=== PATIENT | female | born 1995 | race Caucasian/White ===

== ENCOUNTER 2020-12-28 20:11 | Inpatient (IN) | payer MEDICAID ==
[2020-12-28] MEDS ORDERED: Misoprostol 200 MCG Tab PO PRN (20:30)
[2020-12-28] MEDS ORDERED: Methylergonovine 0.2 MG/1 ML Amp IM PRN (20:30)
[2020-12-28] MEDS ORDERED: Nalbuphine 10 MG/1 ML Vial IVPUSH PRN (20:30)
[2020-12-28] MEDS ORDERED: Lidocaine 1% 50 ML MDV INJECT PRN (20:30)
[2020-12-28] MEDS ORDERED: Sodium Chloride 0.9% 10 ML Syringe FLUSH PRN (20:30)
[2020-12-28] MEDS ORDERED: Oxytocin/0.9 % Sodium Chloride 30 UNIT/500 ML BAG IV SCH ×2 (20:30→20:45)
[2020-12-28] MEDS ORDERED: Butorphanol 1 MG/ML SDV IVPUSH PRN (20:30)
[2020-12-28] MEDS ORDERED: Carboprost Tromethamine 250 MCG/1 ML Amp IM PRN (20:30)
[2020-12-28] MEDS ORDERED: Tranexamic Acid 1,000 MG in Sodium Chloride 0.9% 100 ML IV PRN (20:30)
[2020-12-28] MEDS ORDERED: Water For Irrigation,Sterile 1,000 ML Container IRR PRN (20:30)
[2020-12-28] MEDS ORDERED: Sodium Chloride 0.9% 10 ML SDV IV PRN (20:30)
[2020-12-28] MEDS ORDERED: Sodium Chloride 0.9% 2.5 ML Syringe FLUSH PRN (20:30)
[2020-12-28] MEDS ORDERED: Terbutaline 1 MG/ML SDV SUBCUT PRN (20:32)
[2020-12-28] MEDS: Misoprostol 25 MCG (1/4 of 100 MCG) Tab VAG PRN (21:29)
[2020-12-29] MEDS: Misoprostol 25 MCG (1/4 of 100 MCG) Tab VAG PRN ×3 (01:41→10:17)
[2020-12-29] MEDS: Lactated Ringers 1,000 ML IV SCH ×3 (06:19→21:14)
[2020-12-29] MEDS: Ondansetron 4 MG/2 ML SDV IVPUSH PRN (08:49)
[2020-12-29] MEDS ORDERED: Ropivacaine 0.2% PF 2 MG/ML 20 ML SDV ONE (14:18)
[2020-12-29] MEDS ORDERED: Ropivacaine HCl/PF 100 ML ONE (14:18)
[2020-12-29] MEDS ORDERED: fentaNYL 100 MCG/2 ML SDV ONE (14:19)
--- NOTE | 2020-12-29 15:15 | PCM.PREANE ---
Preanesthetic Assessment - Anesthesia/Transfusion/Family Hx Anesthesia History: Prior Anesthesia Without Reaction Family History of Anesthesia Reaction: No Transfusion History: No Prior Transfusion(s) - Review of Systems General: No Symptoms Pulmonary: No Symptoms Cardiovascular: No Symptoms Gastrointestinal: No Symptoms Neurological: No Symptoms Other: Reports: None (Denies any personal or family hx of bleeding or clotting problems) - Physical Assessment Height: 1.6 m Weight: 104.326 kg ASA Class: 2 Mental Status: Alert & Oriented x3 Airway Class: Mallampati = 3 Dentition: Reports: Normal Dentition - Lab Values: Laboratory Last Values WBC 9.25 K/uL (4.0-11.0) 12/28/20 21:04 RBC 4.79 M/uL (4.30-5.90) 12/28/20 21:04 Hgb 14.3 g/dL (12.0-16.0) 12/28/20 21:04 Hct 42.5 % (36.0-46.0) 12/28/20 21: MCV 88.7 fL (80.0-98.0) 12/28/20 21: MCH 29.9 pg (27.0-32.0) 12/28/20 21: MCHC 33.6 g/dL (31.0-37.0) 12/28/20 21:04 RDW Std Deviation 43.8 fl (28.0-62.0) 12/28/20 21:04 RDW Coeff of Tara 13 % (11.0-15.0) 12/28/20 21:04 Plt Count 211 K/uL (150-400) 12/28/20 21:04 MPV 11.70 fL (7.40-12.00) 12/28/20 21:04 Nucleated RBC % 0.0 /100WBC 12/28/20 21:04 Nucleated RBCs # 0 K/uL 12/28/20 21:04 POC Glucose 71 mg/dL (60-110) 12/29/20 08:38 Blood Type A POSITIVE 12/28/20 21:04 Antibody Screen NEGATIVE 12/28/20 21:04 - Allergies Allergies/Adverse Reactions: Allergies Allergy/AdvReac Type Severity Reaction Status Date / Time No Known Allergies Allergy Verified 12/28/20 20:21 - Acknowledgements Anesthesia Type Planned: Epidural Pt an Appropriate Candidate for the Planned Anesthesia: Yes Alternatives and Risks of Anesthesia Discussed w Pt/Guardian: Yes Pt/Guardian Understands and Agrees with Anesthesia Plan: Yes PreAnesthesia Questionnaire HEENT History: Reports: Impaired Vision, Other (See Below) (Many sinus surgeries) Other HEENT History: dual choanal atresia Respiratory History: Reports: Asthma 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: Endocrine/Metabolic History: Reports: Diabetes, Gestational - Past Surgical History HEENT Surgical History: Reports: Naso-Sinus Surgery Respiratory Surgical History: Reports: None Endocrine Surgical History: Reports: None - SUBSTANCE USE Tobacco Use Status *Q: Never Tobacco User Recreational Drug Use History: No - HOME MEDS Home Medications: Home Meds Albuterol Sulfate [Proair Hfa] 2 puff INH Q4HR PRN 12/28/20 [History] Insulin Detemir [Levemir] 20 units SQ BEDTIME 12/28/20 [History] Insulin Lispro [Humalog] 10 - 20 units SQ TIDMEALS 12/28/20 [History] Pnv No.103/Folic/Om3s/Fish Oil [ Gummies] 2 tab PO DAILY 12/28/20 [History] - CURRENT (IN HOUSE) MEDS Current Meds: Current Medications Butorphanol Tartrate (Stadol) 1 mg IVPUSH Q1H PRN PRN Reason: Pain Last Admin: 12/29/20 06:21 Dose: 1 mg Documented by: Carboprost Tromethamine (Hemabate Ds) 250 mcg IM ASDIRECTED PRN PRN Reason: Post Hemorrhage Oxytocin/Sodium Chloride (Oxytocin 30 Unit/500 Ml-Ns) 30 unit in 500 mls @ 999 mls/hr IV TITRATE DESTIN Tranexamic Acid 1,000 mg/ (Sodium Chloride) 110 mls @ 660 mls/hr IV ONETIME PRN PRN Reason: Bleeding Lactated Ringer's (Ringers, Lactated) 1,000 mls @ 150 mls/hr IV ASDIRECTED DESTIN Last Admin: 12/29/20 06:19 Dose: 150 mls/hr Documented by: Oxytocin/Sodium Chloride (Oxytocin 30 Unit/500 Ml-Ns) 30 unit in 500 mls @ 2 mls/hr IV TITRATE DESTIN; Protocol Lidocaine HCl (Xylocaine 1%) 50 ml INJECT ONETIME PRN PRN Reason: Laceration repair Methylergonovine Maleate (Methergine) 0.2 mg IM ASDIRECTED PRN PRN Reason: Post Hemorrhage Misoprostol (Cytotec) 200 mcg PO ONETIME PRN PRN Reason: Post Hemorrhage Misoprostol (Cytotec) 25 mcg VAG Q4H PRN PRN Reason: Cervical Ripening Last Admin: 12/29/20 10:17 Dose: 25 mcg Documented by: Nalbuphine HCl (Nubain) 10 mg IVPUSH Q1H PRN PRN Reason: Pain (severe 7-10) Ondansetron HCl (Zofran) 4 mg IVPUSH Q6H PRN PRN Reason: Nausea/Vomiting Last Admin: 12/29/20 08:49 Dose: 4 mg Documented by: Sodium Chloride (Saline Flush) 10 ml FLUSH ASDIRECTED PRN PRN Reason: Keep Vein Open Sodium Chloride (Saline Flush) 2.5 ml FLUSH ASDIRECTED PRN PRN Reason: Keep Vein Open Sodium Chloride (Normal Saline) 10 ml IV ASDIRECTED PRN PRN Reason: IV Use Sterile Water (Sterile Water For Irrigation) 1,000 ml IRR ASDIRECTED PRN PRN Reason: delivery Terbutaline Sulfate (Brethine) 0.25 mg SUBCUT ASDIRECTED PRN PRN Reason: Tacysystole Discontinued Medications Fentanyl (Sublimaze) Confirm Administered Dose 200 mcg .ROUTE .STK-MED ONE Stop: 12/29/20 14:20 Ropivacaine (Naropin 0.2%) Confirm Administered Dose 100 mls @ as directed .ROUTE .STK-MED ONE Stop: 12/29/20 14:19 Ropivacaine (Naropin 0.2%) Confirm Administered Dose 20 ml .ROUTE .STK-MED ONE Stop: 12/29/20 14:19
[2020-12-29 17:13] LABS: BLOOD UREA NITROGEN,BUN 9 mg/dL (7.0-18.0); CARBON DIOXIDE,CO2 23.5 mmol/L (21.0-32.0); CHLORIDE,CL 105 mmol/L (98-107); GLUCOSE RANDOM 104 mg/dL (74-106); POTASSIUM,K 4.2 mmol/L (3.5-5.1); SODIUM,NA 139 mmol/L (136-145)
[2020-12-30] MEDS ORDERED: Ropivacaine HCl/PF 100 ML ONE (01:31)
[2020-12-30] MEDS ORDERED: fentaNYL 100 MCG/2 ML SDV ONE ×2 (01:31→07:56)
[2020-12-30] MEDS ORDERED: Dextrose 5%-0.9% NaCl 1,000 ML IV SCH (01:45)
[2020-12-30] MEDS: Lactated Ringers 1,000 ML IV SCH (01:53)
[2020-12-30] MEDS: Ondansetron 4 MG/2 ML SDV IVPUSH PRN (05:33)
[2020-12-30] MEDS ORDERED: Lidocaine 2% with EPINEPHrine 1:200,000 20 ML SDV ONE (06:39)
[2020-12-30] MEDS ORDERED: Morphine PF 10 MG/10 ML SDV ONE (06:41)
[2020-12-30] MEDS ORDERED: Ondansetron 4 MG/2 ML SDV ONE (06:42)
[2020-12-30] MEDS ORDERED: Oxytocin 10 Units/1 ML SDV ONE (06:43)
[2020-12-30] MEDS ORDERED: Water For Injection, Sterile 20 ML ONE (06:51)
[2020-12-30] MEDS ORDERED: ceFAZolin 1 GM Vial ONE (06:51)
[2020-12-30] MEDS ORDERED: Phenylephrine 1% 10 MG/ML SDV ONE (07:10)
[2020-12-30] MEDS ORDERED: Midazolam 1 MG/ML 2 ML SDV ONE (07:56)
[2020-12-30] MEDS ORDERED: Naloxone 0.4 MG/ML Syringe IVPUSH PRN (08:41)
[2020-12-30] MEDS ORDERED: Acetaminophen/oxyCODONE 325-5 MG Tab PO PRN ×2 (08:41→08:45)
[2020-12-30] MEDS ORDERED: Nalbuphine 10 MG/1 ML Vial IVPUSH PRN (08:41)
[2020-12-30] MEDS ORDERED: diphenhydrAMINE 50 MG/ML SDV IVPUSH PRN ×2 (08:41→08:45)
[2020-12-30] MEDS ORDERED: fentaNYL 100 MCG/2 ML SDV IVPUSH PRN (08:41)
[2020-12-30] MEDS ORDERED: Ondansetron 4 MG/2 ML SDV IVPUSH PRN ×2 (08:41→08:45)
[2020-12-30] MEDS ORDERED: Methylergonovine 0.2 MG/1 ML Amp IM PRN (08:45)
[2020-12-30] MEDS ORDERED: Misoprostol 200 MCG Tab RECTAL PRN (08:45)
[2020-12-30] MEDS ORDERED: Tranexamic Acid 1,000 MG in Sodium Chloride 0.9% 100 ML IV PRN (08:45)
[2020-12-30] MEDS ORDERED: Lactated Ringers 1,000 ML IV SCH (08:45)
[2020-12-30] MEDS ORDERED: Lanolin 100% Cream 7 GM Tube TOP PRN (08:45)
[2020-12-30] MEDS ORDERED: Bisacodyl 10 MG Supp RECTAL PRN (08:45)
[2020-12-30] MEDS ORDERED: Oxytocin 10 Units/1 ML SDV IM PRN (08:45)
--- NOTE | 2020-12-30 08:57 | PCM.OPNOTE ---
- General Post-Op/Procedure Note Date of Surgery/Procedure: 12/30/20 Operative Procedure(s): Primary low transverse section Findings: Viable girl , 8/9, weight of 5lb3oz. Direct OP presentation Pre Op Diagnosis: 1. Cronin intrauterine at 38w6d. 2. intolerance of labor. 3. Insulin controlled gestational diabetes. 4. Intrauterine growth restriction. 5. Preeclampsia without severe features Post-Op Diagnosis: 1. Cronin intrauterine at 38w6d. 2. intolerance of labor. 3. Insulin controlled gestational diabetes. 4. Intrauterine growth restriction. 5. Preeclampsia without severe features Anesthesia Technique: Epidural Primary Surgeon: Taj Harp Anesthesia Provider: Jude Arauz Patient Information Coordinator: Minnie Fry Pathology: Placenta Output, Urine Amount: 200 EBL in mLs: 700 Condition: Good Free Text/Narrative:: Intake & Output 12/29/20 12/30/20 12/30/20 22:59 06:59 14:59 Intake Total 1000 1000 451 Output Total 1200 200 Balance 1000 -200 251
[2020-12-30] MEDS: Ketorolac 30 MG/ML SDV IVPUSH SCH ×3 (09:20→21:32)
[2020-12-30] MEDS: Docusate Sodium 100 MG Cap PO SCH ×2 (09:58→21:32)
--- NOTE | 2020-12-30 12:12 | OR ---
SURGEON: Taj Harp MD DATE OF PROCEDURE: 12/30/2020 INDICATION FOR PROCEDURE: A 25-year-old G1, P0 at 38 weeks and 6 days, admitted for induction of labor due to insulin-controlled gestational diabetes and intrauterine growth restriction. The patient's was complicated by GDMA2, which has been controlled with long and short-acting insulin. She has been receiving weekly BPPs, which has been assuring. The past week she had a growth ultrasound which showed intrauterine growth restriction. The baby was measuring 9th percentile by weight, but had reassuring umbilical artery Dopplers. She is GBS negative. 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 She received 4 doses of Cytotec for induction of labor, but she did not make make cervical change and remained 1cm. She was noted to have a mildly elevated blood pressures 140 to 150s/90s. Preeclampsia labs were done, which was normal except for a protein creatinine ratio of 0.7. She denies any symptoms of preeclampsia. She received an epidural for pain control, then pitocin was started and a Cook balloon was placed. However, she began to have recurrent deep variable declarations to the 80s and also had 2 prolonged decelerations lasting 3 to 4 minutes. Pitocin was stopped at that time, and the Cook balloon was removed. She had progressed to 2 cm dilated. After the heart rate returned to baseline, the Pitocin was again started and she again had decelerations, this time was late declarations recurring with every contraction, therefore Pitocin was again turned off, she was given time to rest and heart rate recovered to the baseline. Pitocin was then started again and this time the baby did tolerate the Pitocin with most category 1 tracing, but she continues to have periods of category 2 tracing with minimal variability and late declarations. She also had spontaneous rupture of membranes with clear fluid. After continuing the induction for more than 24 hours, she did not make progress beyond 3 cm dilated and the baby was not able to tolerate higher doses of Pitocin. Discussed with the patient that due to intolerance of labor and being remote from delivery, it would be safer for the baby to proceed with primary section. She was agreeable. Questions answered and consent was signed. PREOPERATIVE DIAGNOSES: 1. Cronin intrauterine at 38 weeks and 6 days. 2. intolerance of labor. 3. Insulin-controlled gestational diabetes. 4. Intrauterine growth restriction. 5. Preeclampsia without severe features. POSTOPERATIVE DIAGNOSES: 1. Cronin intrauterine at 38 weeks and 6 days. 2. intolerance of labor. 3. Insulin-controlled gestational diabetes. 4. Intrauterine growth restriction. 5. Preeclampsia without severe features. PROCEDURE PERFORMED: Primary low transverse section. ANESTHESIA: Epidural. ANESTHESIOLOGIST: Dr. Jude Arauz. FINDINGS: Viable female , scores of 8 and 9. weight of 5 pounds 3 ounces. head was in direct occiput posterior presentation. Normal-appearing uterus, bilateral ovaries, and fallopian tubes. ESTIMATED BLOOD LOSS: 700 mL. URINE OUTPUT: 200 mL. DESCRIPTION OF PROCEDURE: The risks of procedure were discussed with the patient including bleeding, infection, DVTs, injury to surrounding organs including bladder, bowel, and ureters. The patient expressed understanding. Consent was signed. The patient was brought to the operating room. She received 2 g of Ancef IV and SCDs. Epidural anesthesia was in place and Tong catheter was previously placed. The abdomen was prepped with chlorhexidine in the usual fashion and draped and tested for anesthesia. The vagina was prepped with Betadine. Epidural was found to be adequate. Pfannenstiel incision was made with a scalpel and dissected down to fascia. Multiple sites of bleeding were noted and cauterized. The fascia was cleared of subcutaneous tissue. It was incised in the midline and extended laterally with curved Edgar scissors. Alexandrea clamps were placed on the superior fascial edge. The rectus muscles were by blunt dissection and using Edgar scissors. The same process was repeated for the inferior fascial edge. The peritoneum was identified. It was entered bluntly and stretched. The bladder was noted to be away from the lower uterine segment. The Matt O retractor was placed in the peritoneal cavity. Uterus was incised using a scalpel transversely at the lower uterine segment and extended bluntly. Clear amniotic fluid was noted. The was noted to be in direct occiput posterior presentation with the baby's left hand beside the head. The 's head was delivered atraumatically by elevating the head through the hysterotomy and with fundal pressure. The shoulder and body were delivered without difficulty. The umbilical cord was clamped and cut after 60 seconds and no longer pulsating. The baby was pink, crying, and moving all extremities immediately after delivery and was handed off to awaiting nursery staff. The cord gases were obtained. The placenta was delivered with gentle traction on the umbilical cord. It was examined and found to be intact with 3-vessel cord. The uterine cavity was cleaned with a lap to remove any remaining membranes. Allis clamps were used to grasp the angles and lower edges of the incision. The uterine incision was closed in 2 layers, the first layer with running locking fashion using 0 Monocryl, second layer with vertical imbricated fashion using 0 Vicryl. The uterus was firm and the incision was hemostatic. The paracolic gutters were cleared of any clots. The incision was irrigated. The ovaries and tubes were normal appearing bilaterally. Hemostasis was again confirmed. The peritoneum was brought together in the midline and grasped by hemostats. It was closed with 2-0 Vicryl in running fashion. The rectus muscle was reapproximated using a mattress stitch. The rectus muscle was carefully examined and found to be hemostatic. The fascia was closed using 2-0 Vicryl sutures. The subcutaneous tissue was irrigated and bleeding areas were cauterized. The subcutaneous layer was brought together with 2-0 plain in a running fashion. The skin was closed with 3-0 Monocryl on a Claus needle. Telfa and ABD dressing were placed over the incision. The patient was stable and transferred to the recovery room. NARA LANE /[id number] LIVIA
[2020-12-31] MEDS: Ketorolac 30 MG/ML SDV IVPUSH SCH ×2 (03:37→09:39)
[2020-12-31 05:56] LABS: BLOOD UREA NITROGEN,BUN 10 mg/dL (7.0-18.0); CARBON DIOXIDE,CO2 23.3 mmol/L (21.0-32.0); CHLORIDE,CL 107 mmol/L (98-107); GLUCOSE RANDOM 80 mg/dL (74-106); POTASSIUM,K 4.1 mmol/L (3.5-5.1); SODIUM,NA 138 mmol/L (136-145)
--- NOTE | 2020-12-31 07:30 | PCM48HPAN ---
Post Anesthesia Note - EVALUATION WITHIN 48HRS OF ANESTHETIC Vital Signs in Normal Range: Yes Patient Participated in Evaluation: Yes Respiratory Function Stable: Yes Airway Patent: Yes Cardiovascular Function Stable: Yes Hydration Status Stable: Yes Pain Control Satisfactory: Yes Nausea and Vomiting Control Satisfactory: Yes Mental Status Recovered: Yes Vital Signs: Last Vital Signs Temp 36.8 C 12/31/20 03:35 Pulse 72 12/31/20 03:35 Resp 18 12/31/20 07:00 BP 129/85 12/31/20 03:35 Pulse Ox 99 12/31/20 07:00 - COMMENTS/OBSERVATIONS Free Text/Narrative:: The patient has no complaints at this time. She is sitting up in bed and appears to be in no acute distress. There were no apparent anesthetic complications at this time. Discharge from anesthesia service.
--- NOTE | 2020-12-31 08:39 | PCM.SURGPN ---
- General Info Date of Service: 12/31/20 Date of Surgery/Procedure: 12/30/20 POD#: 1 Post-Op Diagnosis: delivery Admission Diagnosis/Problem: delivery delivered Functional Status: Reports: Pain Controlled - Review of Systems General: Reports: No Symptoms HEENT: Reports: No Symptoms Pulmonary: Reports: No Symptoms Cardiovascular: Reports: No Symptoms Gastrointestinal: Reports: No Symptoms Genitourinary: Reports: No Symptoms Musculoskeletal: Reports: No Symptoms Skin: Reports: No Symptoms Neurological: Reports: No Symptoms Psychiatric: Reports: No Symptoms - Patient Data Vitals - Most Recent: Last Vital Signs Temp 98.2 F 12/31/20 03:35 Pulse 72 12/31/20 03:35 Resp 18 12/31/20 07:00 BP 129/85 12/31/20 03:35 Pulse Ox 99 12/31/20 07:00 Weight - Most Recent: 230 lb I&O - Last 24 Hours: Intake & Output 12/30/20 12/31/20 12/31/20 22:59 06:59 14:59 Intake Total 2500 Output Total 550 1600 Balance 1950 -1600 Lab Results Last 24 Hrs: Laboratory Results - last 24 hr 12/29/20 12/30/20 12/30/20 Range/Units 21:51 01:26 02:39 WBC (4.0-11.0) K/uL RBC (4.30-5.90) M/uL Hgb (12.0-16.0) g/dL Hct (36.0-46.0) % MCV (80.0-98.0) fL MCH (27.0-32.0) pg MCHC (31.0-37.0) g/dL RDW Std Deviation (28.0-62.0) fl RDW Coeff of Tara (11.0-15.0) % Plt Count (150-400) K/uL MPV (7.40-12.00) fL Neut % (Auto) (48.0-80.0) % Lymph % (Auto) (16.0-40.0) % [place] % (Auto) (0.0-15.0) % Eos % (Auto) (0.0-7.0) % Baso % (Auto) (0.0-1.5) % Neut # (Auto) (1.4-5.7) K/uL Lymph # (Auto) (0.6-2.4) K/uL [place] # (Auto) (0.0-0.8) K/uL Eos # (Auto) (0.0-0.7) K/uL Baso # (Auto) (0.0-0.1) K/uL Nucleated RBC % /100WBC Nucleated RBCs # K/uL Sodium (136-145) mmol/L Potassium (3.5-5.1) mmol/L Chloride (98-107) mmol/L Carbon Dioxide (21.0-32.0) mmol/L BUN (7.0-18.0) mg/dL Creatinine (0.6-1.0) mg/dL Est Cr Clr Drug Dosing mL/min Estimated GFR (MDRD) ml/min Glucose (74-106) mg/dL POC Glucose 76 70 74 (60-110) mg/dL Calcium (8.5-10.1) mg/dL Total Bilirubin (0.2-1.0) mg/dL AST (15-37) IU/L ALT (14-63) IU/L Alkaline Phosphatase (46-116) U/L Total Protein (6.4-8.2) g/dL Albumin (3.4-5.0) g/dL Globulin (2.6-4.0) g/dL Albumin/Globulin Ratio (0.9-1.6) 12/30/20 12/30/20 12/30/20 Range/Units 03:31 04:26 05:37 WBC (4.0-11.0) K/uL RBC (4.30-5.90) M/uL Hgb (12.0-16.0) g/dL Hct (36.0-46.0) % MCV (80.0-98.0) fL MCH (27.0-32.0) pg MCHC (31.0-37.0) g/dL RDW Std Deviation (28.0-62.0) fl RDW Coeff of Tara (11.0-15.0) % Plt Count (150-400) K/uL MPV (7.40-12.00) fL Neut % (Auto) (48.0-80.0) % Lymph % (Auto) (16.0-40.0) % [place] % (Auto) (0.0-15.0) % Eos % (Auto) (0.0-7.0) % Baso % (Auto) (0.0-1.5) % Neut # (Auto) (1.4-5.7) K/uL Lymph # (Auto) (0.6-2.4) K/uL [place] # (Auto) (0.0-0.8) K/uL Eos # (Auto) (0.0-0.7) K/uL Baso # (Auto) (0.0-0.1) K/uL Nucleated RBC % /100WBC Nucleated RBCs # K/uL Sodium (136-145) mmol/L Potassium (3.5-5.1) mmol/L Chloride (98-107) mmol/L Carbon Dioxide (21.0-32.0) mmol/L BUN (7.0-18.0) mg/dL Creatinine (0.6-1.0) mg/dL Est Cr Clr Drug Dosing mL/min Estimated GFR (MDRD) ml/min Glucose (74-106) mg/dL POC Glucose 78 92 76 (60-110) mg/dL Calcium (8.5-10.1) mg/dL Total Bilirubin (0.2-1.0) mg/dL AST (15-37) IU/L ALT (14-63) IU/L Alkaline Phosphatase (46-116) U/L Total Protein (6.4-8.2) g/dL Albumin (3.4-5.0) g/dL Globulin (2.6-4.0) g/dL Albumin/Globulin Ratio (0.9-1.6) 12/30/20 12/31/20 12/31/20 Range/Units 06:24 05:10 05:10 WBC 7.23 (4.0-11.0) K/uL RBC 3.55 L (4.30-5.90) M/uL Hgb 10.4 L (12.0-16.0) g/dL Hct 31.7 L (36.0-46.0) % MCV 89.3 (80.0-98.0) fL MCH 29.3 (27.0-32.0) pg MCHC 32.8 (31.0-37.0) g/dL RDW Std Deviation 43.7 (28.0-62.0) fl RDW Coeff of Tara 13 (11.0-15.0) % Plt Count 170 (150-400) K/uL MPV 11.20 (7.40-12.00) fL Neut % (Auto) 71.5 (48.0-80.0) % Lymph % (Auto) 18.1 (16.0-40.0) % [place] % (Auto) 7.2 (0.0-15.0) % Eos % (Auto) 2.6 (0.0-7.0) % Baso % (Auto) 0.6 (0.0-1.5) % Neut # (Auto) 5.2 (1.4-5.7) K/uL Lymph # (Auto) 1.3 (0.6-2.4) K/uL [place] # (Auto) 0.5 (0.0-0.8) K/uL Eos # (Auto) 0.2 (0.0-0.7) K/uL Baso # (Auto) 0.0 (0.0-0.1) K/uL Nucleated RBC % 0.0 /100WBC Nucleated RBCs # 0 K/uL Sodium 138 (136-145) mmol/L Potassium 4.1 (3.5-5.1) mmol/L Chloride 107 (98-107) mmol/L Carbon Dioxide 23.3 (21.0-32.0) mmol/L BUN 10 (7.0-18.0) mg/dL Creatinine 0.7 (0.6-1.0) mg/dL Est Cr Clr Drug Dosing 101.63 mL/min Estimated GFR (MDRD) > 60.0 ml/min Glucose 80 (74-106) mg/dL POC Glucose 85 (60-110) mg/dL Calcium 7.9 L (8.5-10.1) mg/dL Total Bilirubin 0.3 (0.2-1.0) mg/dL AST 17 (15-37) IU/L ALT 12 L (14-63) IU/L Alkaline Phosphatase 155 H (46-116) U/L Total Protein 4.6 L (6.4-8.2) g/dL Albumin 1.4 L (3.4-5.0) g/dL Globulin 3.2 (2.6-4.0) g/dL Albumin/Globulin Ratio 0.4 L (0.9-1.6) Med Orders - Current: Current Medications Bisacodyl (Dulcolax) 10 mg RECTAL ONETIME PRN PRN Reason: Constipation Diphenhydramine HCl (Benadryl) 25 mg IVPUSH Q4H PRN PRN Reason: Itching Stop: 12/31/20 08:41 Diphenhydramine HCl (Benadryl) 25 mg IVPUSH Q6H PRN PRN Reason: Itching or Nausea Docusate Sodium (Colace) 100 mg PO BID [facility] Last Admin: 12/30/20 21:32 Dose: 100 mg Documented by: Emollient Ointment (Lansinoh Hpa) 0 gm TOP ASDIRECTED PRN PRN Reason: Sore Nipples Fentanyl (Sublimaze) 50 mcg IVPUSH Q1H PRN PRN Reason: Pain (severe 7-10) Oxytocin/Sodium Chloride (Oxytocin 30 Unit/500 Ml-Ns) 30 unit in 500 mls @ 2 mls/hr IV TITRATE [facility]; Protocol Last Titration: 12/30/20 06:16 Dose: 0 munits/min, 0 mls/hr Documented by: Dextrose/Sodium Chloride (Dextrose 5%-Normal Saline) 1,000 mls @ 100 mls/hr IV ASDIRECTED [facility] Last Admin: 12/30/20 02:03 Dose: 100 mls/hr Documented by: Insulin Human Regular 100 unit (/ Sodium Chloride) 100 mls @ 0.5 mls/hr IV TITRATE [facility]; Protocol Last Titration: 12/30/20 05:38 Dose: 0 unit/hr, 0 mls/hr Documented by: Lactated Ringer's (Ringers, Lactated) 1,000 mls @ 125 mls/hr IV ASDIRECTED [facility] Last Admin: 12/30/20 09:48 Dose: 125 mls/hr Documented by: Tranexamic Acid 1,000 mg/ (Sodium Chloride) 110 mls @ 660 mls/hr IV ONETIME PRN PRN Reason: Bleeding Ibuprofen (Motrin) 800 mg PO Q8H PRN PRN Reason: mild pain or fever Ketorolac Tromethamine (Toradol) 30 mg IVPUSH Q6H [facility] Stop: 12/31/20 08:46 Last Admin: 12/31/20 03:37 Dose: 30 mg Documented by: Methylergonovine Maleate (Methergine) 0.2 mg IM ONETIME PRN PRN Reason: Excessive Vaginal Bleeding Misoprostol (Cytotec) 25 mcg VAG Q4H PRN PRN Reason: Cervical Ripening Last Admin: 12/29/20 10:17 Dose: 25 mcg Documented by: Misoprostol (Cytotec) 1,000 mcg RECTAL ONETIME PRN PRN Reason: excessive bleeding Nalbuphine HCl (Nubain) 5 mg IVPUSH ASDIRECTED PRN PRN Reason: Itching Naloxone HCl (Narcan) 0.1 mg IVPUSH ONETIME PRN PRN Reason: Respiratory Depression Stop: 12/31/20 08:41 Ondansetron HCl (Zofran) 4 mg IVPUSH Q6H PRN PRN Reason: Nausea Ondansetron HCl (Zofran) 4 mg IVPUSH Q4H PRN PRN Reason: Nausea/Vomiting Oxycodone/Acetaminophen (Percocet 325-5 Mg) 2 tab PO Q6H PRN PRN Reason: Pain (moderate 4-6) Oxycodone/Acetaminophen (Percocet 325-5 Mg) 1 tab PO Q4H PRN PRN Reason: Pain (moderate 4-6) Oxycodone/Acetaminophen (Percocet 325-5 Mg) 2 tab PO Q4H PRN PRN Reason: Pain (moderate 4-6) Oxytocin (Pitocin) 10 unit IM ASDIRECTED PRN PRN Reason: Excessive Vaginal Bleeding Sodium Chloride (Saline Flush) 10 ml FLUSH ASDIRECTED PRN PRN Reason: Keep Vein Open Sodium Chloride (Saline Flush) 2.5 ml FLUSH ASDIRECTED PRN PRN Reason: Keep Vein Open Sodium Chloride (Normal Saline) 10 ml IV ASDIRECTED PRN PRN Reason: IV Use Terbutaline Sulfate (Brethine) 0.25 mg SUBCUT ASDIRECTED PRN PRN Reason: Tacysystole Discontinued Medications Butorphanol Tartrate (Stadol) 1 mg IVPUSH Q1H PRN PRN Reason: Pain Last Admin: 12/29/20 06:21 Dose: 1 mg Documented by: Carboprost Tromethamine (Hemabate Ds) 250 mcg IM ASDIRECTED PRN PRN Reason: Post Hemorrhage Cefazolin Sodium (Ancef) Confirm Administered Dose 2 gm .ROUTE .STK-MED ONE Stop: 12/30/20 06:52 Fentanyl (Sublimaze) Confirm Administered Dose 200 mcg .ROUTE .STK-MED ONE Stop: 12/29/20 14:20 Fentanyl (Sublimaze) Confirm Administered Dose 200 mcg .ROUTE .STK-MED ONE Stop: 12/30/20 01:32 Fentanyl (Sublimaze) Confirm Administered Dose 100 mcg .ROUTE .STK-MED ONE Stop: 12/30/20 07:57 Oxytocin/Sodium Chloride (Oxytocin 30 Unit/500 Ml-Ns) 30 unit in 500 mls @ 999 mls/hr IV TITRATE [facility] Tranexamic Acid 1,000 mg/ (Sodium Chloride) 110 mls @ 660 mls/hr IV ONETIME PRN PRN Reason: Bleeding Lactated Ringer's (Ringers, Lactated) 1,000 mls @ 150 mls/hr IV ASDIRECTED [facility] Last Admin: 12/30/20 01:53 Dose: 25 mls/hr Documented by: Ropivacaine (Naropin 0.2%) Confirm Administered Dose 100 mls @ as directed .ROUTE .STK-MED ONE Stop: 12/29/20 14:19 Ropivacaine (Naropin 0.2%) Confirm Administered Dose 100 mls @ as directed .ROUTE .STK-MED ONE Stop: 12/30/20 01:32 Sterile Water (Sterile Water For Injection) Confirm Administered Dose 20 mls @ as directed .ROUTE .STK-MED ONE Stop: 12/30/20 06:52 Lidocaine HCl (Xylocaine 1%) 50 ml INJECT ONETIME PRN PRN Reason: Laceration repair Lidocaine/Epinephrine (Xylocaine-Mpf 2%-Epi 1:200,000) Confirm Administered Dose 20 ml .ROUTE .STK-MED ONE Stop: 12/30/20 06:40 Methylergonovine Maleate (Methergine) 0.2 mg IM ASDIRECTED PRN PRN Reason: Post Hemorrhage Midazolam HCl (Versed 1 Mg/Ml) Confirm Administered Dose 2 mg .ROUTE .STK-MED ONE Stop: 12/30/20 07:57 Misoprostol (Cytotec) 200 mcg PO ONETIME PRN PRN Reason: Post Hemorrhage Morphine Sulfate (Duramorph Pf) Confirm Administered Dose 10 mg .ROUTE .STK-MED ONE Stop: 12/30/20 06:42 Nalbuphine HCl (Nubain) 10 mg IVPUSH Q1H PRN PRN Reason: Pain (severe 7-10) Ondansetron HCl (Zofran) 4 mg IVPUSH Q6H PRN PRN Reason: Nausea/Vomiting Last Admin: 12/30/20 05:33 Dose: 4 mg Documented by: Ondansetron HCl (Zofran) Confirm Administered Dose 4 mg .ROUTE .STK-MED ONE Stop: 12/30/20 06:43 Oxytocin (Pitocin) Confirm Administered Dose 20 unit .ROUTE .STK-MED ONE Stop: 12/30/20 06:44 Phenylephrine HCl (Raza-Synephrine) Confirm Administered Dose 10 mg .ROUTE .STK- MED ONE Stop: 12/30/20 07:11 Ropivacaine (Naropin 0.2%) Confirm Administered Dose 20 ml .ROUTE .STK-MED ONE Stop: 12/29/20 14:19 Sterile Water (Sterile Water For Irrigation) 1,000 ml IRR ASDIRECTED PRN PRN Reason: delivery - Exam Wound/Incisions: Healing Well General: Alert, Oriented HEENT: Pupils Equal Neck: Supple Lungs: Clear to Auscultation, Normal Respiratory Effort Cardiovascular: Regular Rate, Regular Rhythm GI/Abdominal Exam: Soft, No Organomegaly, No Distention, No Mass, Other (appropriately tender ) Extremities: Normal Inspection, Normal Range of Motion, Non-Tender, No Pedal Edema, Normal Capillary Refill Skin: Warm, Dry, Intact Neurological: No New Focal Deficit Psy/Mental Status: Alert, Normal Affect, Normal Mood Sepsis Event Note - Evaluation Sepsis Screening Result: No Definite Risk - Focused Exam Vital Signs: Vital Signs Temp Pulse Resp BP Pulse Ox 12/31/20 07:00 18 99 12/31/20 06:00 17 98 12/31/20 05:00 16 98 12/31/20 04:00 18 98 12/31/20 03:35 98.2 F 72 16 129/85 98 12/31/20 03:00 16 95 12/31/20 02:00 18 96 12/31/20 01:00 17 95 12/31/20 00:00 18 95 12/30/20 22:45 97.0 F 69 16 122/75 98 12/30/20 22:00 17 97 12/30/20 21:00 16 100 - Problem List & Annotations (1) delivery delivered SNOMED Code(s): 899253738 Code(s): O82 - ENCOUNTER FOR DELIVERY WITHOUT INDICATION Status: Acute Current Visit: Yes Onset Date: ~12/30/20 - Problem List Review Problem List Initiated/Reviewed/Updated: Yes - My Orders Last 24 Hours: Active Orders 24 hr Category Date Time Status Patient Status [ADT] Routine ADT 12/30/20 08:45 Active Ambulate [RC] PER UNIT ROUTINE Care 12/30/20 08:45 Active Antiembolic Devices [RC] PER UNIT ROUTINE Care 12/30/20 08:46 Active Intake and Output [RC] .PRN Care 12/30/20 08:45 Active May Shower [RC] ASDIRECTED Care 12/30/20 08:45 Active Oxygen Therapy [RC] PER UNIT ROUTINE Care 12/30/20 08:41 Active RT Incentive Spirometry [RC] Q2HWA Care 12/30/20 08:45 Active Vital Signs [RC] Q1H Care 12/30/20 08:41 Active Regular Diet [DIET] Diet 12/30/20 Lunch Active Acetaminophen/oxyCODONE [Percocet 325-5 MG] Med 12/30/20 08:45 Active 1 tab PO Q4H PRN Acetaminophen/oxyCODONE [Percocet 325-5 MG] Med 12/30/20 08:45 Active 2 tab PO Q4H PRN Acetaminophen/oxyCODONE [Percocet 325-5 MG] Med 12/30/20 08:41 Active 2 tab PO Q6H PRN Docusate Sodium [Colace] Med 12/30/20 09:00 Active 100 mg PO BID Ibuprofen [Motrin] Med 12/31/20 14:45 Active 800 mg PO Q8H PRN Ketorolac [Toradol] Med 12/30/20 08:45 Active 30 mg IVPUSH Q6H Lactated Ringers [Ringers, Lactated] 1,000 ml Med 12/30/20 08:45 Active IV ASDIRECTED Lanolin [Lansinoh HPA] Med 12/30/20 08:45 Active See Dose Instructions TOP ASDIRECTED PRN Methylergonovine [Methergine] Med 12/30/20 08:45 Active 0.2 mg IM ONETIME PRN Nalbuphine [Nubain] Med 12/30/20 08:41 Active 5 mg IVPUSH ASDIRECTED PRN Naloxone [Narcan] Med 12/30/20 08:41 Active 0.1 mg IVPUSH ONETIME PRN Ondansetron [Zofran] Med 12/30/20 08:45 Active 4 mg IVPUSH Q4H PRN Ondansetron [Zofran] Med 12/30/20 08:41 Active 4 mg IVPUSH Q6H PRN Oxytocin [Pitocin] Med 12/30/20 08:45 Active 10 unit IM ASDIRECTED PRN Tranexamic Acid [Cyklokapron] 1,000 mg Med 12/30/20 08:45 Active Sodium Chloride 0.9% [Normal Saline] 100 ml IV ONETIME bisacodyL [Dulcolax] Med 12/30/20 08:45 Active 10 mg RECTAL ONETIME PRN diphenhydrAMINE [Benadryl] Med 12/30/20 08:41 Active 25 mg IVPUSH Q4H PRN diphenhydrAMINE [Benadryl] Med 12/30/20 08:45 Active 25 mg IVPUSH Q6H PRN fentaNYL [Sublimaze] Med 12/30/20 08:41 Active 50 mcg IVPUSH Q1H PRN miSOPROStoL [Cytotec] Med 12/30/20 08:45 Active 1,000 mcg RECTAL ONETIME PRN Abdominal Binder [OM.PC] Urgent Ot 12/30/20 08:45 Ordered Assess Lochia [WOMSER] Per Unit Routine Ot 12/30/20 08:45 Ordered Assess Uterine Involution [WOMSER] Per Unit Routine Ot 12/30/20 08:45 Ordered Breast Pump [WOMSER] Per Unit Routine Ot 12/30/20 08:45 Ordered Peripheral IV Discontinue [OM.PC] Routine Ot 12/30/20 08:45 Ordered Sequential Compression Device [OM.PC] Per Unit Routine Ot 12/30/20 08:45 Ordered Medication Orders Bisacodyl (Dulcolax) 10 mg RECTAL ONETIME PRN PRN Reason: Constipation Diphenhydramine HCl (Benadryl) 25 mg IVPUSH Q4H PRN PRN Reason: Itching Stop: 12/31/20 08:41 Diphenhydramine HCl (Benadryl) 25 mg IVPUSH Q6H PRN PRN Reason: Itching or Nausea Docusate Sodium (Colace) 100 mg PO BID [facility] Last Admin: 12/30/20 21:32 Dose: 100 mg Documented by: Admin: 12/30/20 09:58 Dose: Not Given Documented by: EVELYN Emollient Ointment (Lansinoh Hpa) 0 gm TOP ASDIRECTED PRN PRN Reason: Sore Nipples Fentanyl (Sublimaze) 50 mcg IVPUSH Q1H PRN PRN Reason: Pain (severe 7-10) Oxytocin/Sodium Chloride (Oxytocin 30 Unit/500 Ml-Ns) 30 unit in 500 mls @ 2 mls/hr IV TITRATE [facility]; Protocol Last Titration: 12/30/20 06:16 Dose: 0 munits/min, 0 mls/hr Documented by: Titration: 12/30/20 03:56 Dose: 7 munits/min, 7 mls/hr Documented by: Titration: 12/30/20 02:49 Dose: 5 munits/min, 5 mls/hr Documented by: Titration: 12/30/20 02:05 Dose: 10 munits/min, 10 mls/hr Documented by: Titration: 12/30/20 01:23 Dose: 8 munits/min, 8 mls/hr Documented by: Titration: 12/30/20 00:54 Dose: 6 munits/min, 6 mls/hr Documented by: Titration: 12/30/20 00:28 Dose: 4 munits/min, 4 mls/hr Documented by: Titration: 12/30/20 00:11 Dose: 0 munits/min, 0 mls/hr Documented by: Titration: 12/29/20 20:39 Dose: 4 munits/min, 4 mls/hr Documented by: Titration: 12/29/20 20:06 Dose: 2 munits/min, 2 mls/hr Documented by: Titration: 12/29/20 17:30 Dose: 0 munits/min, 0 mls/hr Documented by: Titration: 12/29/20 17:20 Dose: 4 munits/min, 4 mls/hr Documented by: Admin: 12/29/20 16:12 Dose: 2 munits/min, 2 mls/hr Documented by: LAITH Dextrose/Sodium Chloride (Dextrose 5%-Normal Saline) 1,000 mls @ 100 mls/hr IV ASDIRECTED [facility] Last Admin: 12/30/20 02:03 Dose: 100 mls/hr Documented by: BEN Insulin Human Regular 100 unit (/ Sodium Chloride) 100 mls @ 0.5 mls/hr IV TITRATE [facility]; Protocol Last Titration: 12/30/20 05:38 Dose: 0 unit/hr, 0 mls/hr Documented by: BEN Cosigned by: [email or web address] Admin: 12/30/20 04:38 Dose: 0.5 unit/hr, 0.5 mls/hr Documented by: BEN Cosigned by: SPENSER Lactated Ringer's (Ringers, Lactated) 1,000 mls @ 125 mls/hr IV ASDIRECTED [facility] Last Admin: 12/30/20 09:48 Dose: 125 mls/hr Documented by: EVELYN Tranexamic Acid 1,000 mg/ (Sodium Chloride) 110 mls @ 660 mls/hr IV ONETIME PRN PRN Reason: Bleeding Ibuprofen (Motrin) 800 mg PO Q8H PRN PRN Reason: mild pain or fever Ketorolac Tromethamine (Toradol) 30 mg IVPUSH Q6H [facility] Stop: 12/31/20 08:46 Last Admin: 12/31/20 03:37 Dose: 30 mg Documented by: Admin: 12/30/20 21:32 Dose: 30 mg Documented by: Admin: 12/30/20 15:30 Dose: 30 mg Documented by: Admin: 12/30/20 09:20 Dose: 30 mg Documented by: EVELYN Methylergonovine Maleate (Methergine) 0.2 mg IM ONETIME PRN PRN Reason: Excessive Vaginal Bleeding Misoprostol (Cytotec) 25 mcg VAG Q4H PRN PRN Reason: Cervical Ripening Last Admin: 12/29/20 10:17 Dose: 25 mcg Documented by: Admin: 12/29/20 06:02 Dose: 25 mcg Documented by: [id number] Admin: 12/29/20 01:41 Dose: 25 mcg Documented by: [id number] Admin: 12/28/20 21:29 Dose: 25 mcg Documented by: [id number] Misoprostol (Cytotec) 1,000 mcg RECTAL ONETIME PRN PRN Reason: excessive bleeding Nalbuphine HCl (Nubain) 5 mg IVPUSH ASDIRECTED PRN PRN Reason: Itching Naloxone HCl (Narcan) 0.1 mg IVPUSH ONETIME PRN PRN Reason: Respiratory Depression Stop: 12/31/20 08:41 Ondansetron HCl (Zofran) 4 mg IVPUSH Q6H PRN PRN Reason: Nausea Ondansetron HCl (Zofran) 4 mg IVPUSH Q4H PRN PRN Reason: Nausea/Vomiting Oxycodone/Acetaminophen (Percocet 325-5 Mg) 2 tab PO Q6H PRN PRN Reason: Pain (moderate 4-6) Oxycodone/Acetaminophen (Percocet 325-5 Mg) 1 tab PO Q4H PRN PRN Reason: Pain (moderate 4-6) Oxycodone/Acetaminophen (Percocet 325-5 Mg) 2 tab PO Q4H PRN PRN Reason: Pain (moderate 4-6) Oxytocin (Pitocin) 10 unit IM ASDIRECTED PRN PRN Reason: Excessive Vaginal Bleeding Sodium Chloride (Saline Flush) 10 ml FLUSH ASDIRECTED PRN PRN Reason: Keep Vein Open Sodium Chloride (Saline Flush) 2.5 ml FLUSH ASDIRECTED PRN PRN Reason: Keep Vein Open Sodium Chloride (Normal Saline) 10 ml IV ASDIRECTED PRN PRN Reason: IV Use Terbutaline Sulfate (Brethine) 0.25 mg SUBCUT ASDIRECTED PRN PRN Reason: Tacysystole - Assessment Assessment (Free Text/Narrative):: 38+6 POD1 s/p section for failure to progress - delivered viable female infant. Tong removed this am, has not voided yet. - Plan Plan (Free Text/Narrative):: 1. Routine pp cares 2. Pain control - has been controlled with IV toradol, will switch to PO percocet today. 3. Gestational hypertension/pre-eclampsia - CBC/CMP today stable. BP's stable overnight - continue to monitor closely while inpatient. No s/s pre-eclampsia. 4. GDMA2 - POC glucoses normal overnight. GTT at 6 week pp visit.
[2020-12-31] MEDS: Docusate Sodium 100 MG Cap PO SCH ×2 (09:39→20:18)
[2020-12-31] MEDS: Acetaminophen/oxyCODONE 325-5 MG Tab PO PRN (17:39)
[2020-12-31] MEDS: Ibuprofen 800 MG Tab PO PRN (20:18)
[2021-01-01] MEDS: Acetaminophen/oxyCODONE 325-5 MG Tab PO PRN ×2 (01:19→06:33)
[2021-01-01] MEDS: Ibuprofen 800 MG Tab PO PRN (06:30)
--- NOTE | 2021-01-01 08:55 | PCM.PNPP ---
- General Info Date of Service: 01/01/21 Functional Status: Reports: Pain Controlled, Tolerating Diet, Ambulating, Urinating - Review of Systems General: Reports: No Symptoms HEENT: Reports: No Symptoms Pulmonary: Reports: No Symptoms Cardiovascular: Reports: No Symptoms Gastrointestinal: Reports: No Symptoms Genitourinary: Reports: No Symptoms Musculoskeletal: Reports: No Symptoms Skin: Reports: No Symptoms Neurological: Reports: No Symptoms Psychiatric: Reports: No Symptoms - Patient Data Vital Signs - Most Recent: Last Vital Signs Temp 36.3 C 01/01/21 04:08 Pulse 66 01/01/21 04:08 Resp 18 01/01/21 04:08 BP 128/68 01/01/21 04:08 Pulse Ox 98 01/01/21 04:08 Weight - Most Recent: 230 lb Lab Results - Last 24 Hours: Laboratory Results - last 24 hr 12/28/20 Range/Units 21:04 RPR Non-Reac (Non-Reac) Med Orders - Current: Current Medications Bisacodyl (Dulcolax) 10 mg RECTAL ONETIME PRN PRN Reason: Constipation Diphenhydramine HCl (Benadryl) 25 mg IVPUSH Q6H PRN PRN Reason: Itching or Nausea Docusate Sodium (Colace) 100 mg PO BID DESTIN Last Admin: 12/31/20 20:18 Dose: 100 mg Documented by: Emollient Ointment (Lansinoh Hpa) 0 gm TOP ASDIRECTED PRN PRN Reason: Sore Nipples Fentanyl (Sublimaze) 50 mcg IVPUSH Q1H PRN PRN Reason: Pain (severe 7-10) Oxytocin/Sodium Chloride (Oxytocin 30 Unit/500 Ml-Ns) 30 unit in 500 mls @ 2 mls/hr IV TITRATE DESTIN; Protocol Last Titration: 12/30/20 06:16 Dose: 0 munits/min, 0 mls/hr Documented by: Dextrose/Sodium Chloride (Dextrose 5%-Normal Saline) 1,000 mls @ 100 mls/hr IV ASDIRECTED DESTIN Last Admin: 12/30/20 02:03 Dose: 100 mls/hr Documented by: Insulin Human Regular 100 unit (/ Sodium Chloride) 100 mls @ 0.5 mls/hr IV TITRATE DESTIN; Protocol Last Titration: 12/30/20 05:38 Dose: 0 unit/hr, 0 mls/hr Documented by: Lactated Ringer's (Ringers, Lactated) 1,000 mls @ 125 mls/hr IV ASDIRECTED DESTIN Last Admin: 12/30/20 09:48 Dose: 125 mls/hr Documented by: Tranexamic Acid 1,000 mg/ (Sodium Chloride) 110 mls @ 660 mls/hr IV ONETIME PRN PRN Reason: Bleeding Ibuprofen (Motrin) 800 mg PO Q8H PRN PRN Reason: mild pain or fever Last Admin: 01/01/21 06:30 Dose: 800 mg Documented by: Methylergonovine Maleate (Methergine) 0.2 mg IM ONETIME PRN PRN Reason: Excessive Vaginal Bleeding Misoprostol (Cytotec) 25 mcg VAG Q4H PRN PRN Reason: Cervical Ripening Last Admin: 12/29/20 10:17 Dose: 25 mcg Documented by: Misoprostol (Cytotec) 1,000 mcg RECTAL ONETIME PRN PRN Reason: excessive bleeding Nalbuphine HCl (Nubain) 5 mg IVPUSH ASDIRECTED PRN PRN Reason: Itching Ondansetron HCl (Zofran) 4 mg IVPUSH Q6H PRN PRN Reason: Nausea Ondansetron HCl (Zofran) 4 mg IVPUSH Q4H PRN PRN Reason: Nausea/Vomiting Oxycodone/Acetaminophen (Percocet 325-5 Mg) 2 tab PO Q6H PRN PRN Reason: Pain (moderate 4-6) Oxycodone/Acetaminophen (Percocet 325-5 Mg) 1 tab PO Q4H PRN PRN Reason: Pain (moderate 4-6) Oxycodone/Acetaminophen (Percocet 325-5 Mg) 2 tab PO Q4H PRN PRN Reason: Pain (moderate 4-6) Last Admin: 01/01/21 06:33 Dose: 2 tab Documented by: Oxytocin (Pitocin) 10 unit IM ASDIRECTED PRN PRN Reason: Excessive Vaginal Bleeding Sodium Chloride (Saline Flush) 10 ml FLUSH ASDIRECTED PRN PRN Reason: Keep Vein Open Sodium Chloride (Saline Flush) 2.5 ml FLUSH ASDIRECTED PRN PRN Reason: Keep Vein Open Sodium Chloride (Normal Saline) 10 ml IV ASDIRECTED PRN PRN Reason: IV Use Terbutaline Sulfate (Brethine) 0.25 mg SUBCUT ASDIRECTED PRN PRN Reason: Tacysystole Discontinued Medications Butorphanol Tartrate (Stadol) 1 mg IVPUSH Q1H PRN PRN Reason: Pain Last Admin: 12/29/20 06:21 Dose: 1 mg Documented by: Carboprost Tromethamine (Hemabate Ds) 250 mcg IM ASDIRECTED PRN PRN Reason: Post Hemorrhage Cefazolin Sodium (Ancef) Confirm Administered Dose 2 gm .ROUTE .STK-MED ONE Stop: 12/30/20 06:52 Diphenhydramine HCl (Benadryl) 25 mg IVPUSH Q4H PRN PRN Reason: Itching Stop: 12/31/20 08:41 Fentanyl (Sublimaze) Confirm Administered Dose 200 mcg .ROUTE .STK-MED ONE Stop: 12/29/20 14:20 Fentanyl (Sublimaze) Confirm Administered Dose 200 mcg .ROUTE .STK-MED ONE Stop: 12/30/20 01:32 Last Admin: 12/31/20 21:25 Dose: Not Given Documented by: Fentanyl (Sublimaze) Confirm Administered Dose 100 mcg .ROUTE .STK-MED ONE Stop: 12/30/20 07:57 Oxytocin/Sodium Chloride (Oxytocin 30 Unit/500 Ml-Ns) 30 unit in 500 mls @ 999 mls/hr IV TITRATE [facility] Tranexamic Acid 1,000 mg/ (Sodium Chloride) 110 mls @ 660 mls/hr IV ONETIME PRN PRN Reason: Bleeding Lactated Ringer's (Ringers, Lactated) 1,000 mls @ 150 mls/hr IV ASDIRECTED [facility] Last Admin: 12/30/20 01:53 Dose: 25 mls/hr Documented by: Ropivacaine (Naropin 0.2%) Confirm Administered Dose 100 mls @ as directed .[facility] [place] .STK-MED ONE Stop: 12/29/20 14:19 Ropivacaine (Naropin 0.2%) Confirm Administered Dose 100 mls @ as directed .ROUTE .STK-MED ONE Stop: 12/30/20 01:32 Last Admin: 12/31/20 21:25 Dose: Not Given Documented by: Sterile Water (Sterile Water For Injection) Confirm Administered Dose 20 mls @ as directed .ROUTE .STK-MED ONE Stop: 12/30/20 06:52 Ketorolac Tromethamine (Toradol) 30 mg IVPUSH Q6H [facility] Stop: 12/31/20 08:46 Last Admin: 12/31/20 09:39 Dose: 30 mg Documented by: Lidocaine HCl (Xylocaine 1%) 50 ml INJECT ONETIME PRN PRN Reason: Laceration repair Lidocaine/Epinephrine (Xylocaine-Mpf 2%-Epi 1:200,000) Confirm Administered Dose 20 ml .ROUTE .STK-MED ONE Stop: 12/30/20 06:40 Last Admin: 12/31/20 21:25 Dose: Not Given Documented by: Methylergonovine Maleate (Methergine) 0.2 mg IM ASDIRECTED PRN PRN Reason: Post Hemorrhage Midazolam HCl (Versed 1 Mg/Ml) Confirm Administered Dose 2 mg .ROUTE .STK-MED ONE Stop: 12/30/20 07:57 Misoprostol (Cytotec) 200 mcg PO ONETIME PRN PRN Reason: Post Hemorrhage Morphine Sulfate (Duramorph Pf) Confirm Administered Dose 10 mg .ROUTE .STK-MED ONE Stop: 12/30/20 06:42 Nalbuphine HCl (Nubain) 10 mg IVPUSH Q1H PRN PRN Reason: Pain (severe 7-10) Naloxone HCl (Narcan) 0.1 mg IVPUSH ONETIME PRN PRN Reason: Respiratory Depression Stop: 12/31/20 08:41 Ondansetron HCl (Zofran) 4 mg IVPUSH Q6H PRN PRN Reason: Nausea/Vomiting Last Admin: 12/30/20 05:33 Dose: 4 mg Documented by: Ondansetron HCl (Zofran) Confirm Administered Dose 4 mg .ROUTE .STK-MED ONE Stop: 12/30/20 06:43 Oxytocin (Pitocin) Confirm Administered Dose 20 unit .ROUTE .STK-MED ONE Stop: 12/30/20 06:44 Phenylephrine HCl (Raza-Synephrine) Confirm Administered Dose 10 mg .ROUTE .STK- MED ONE Stop: 12/30/20 07:11 Ropivacaine (Naropin 0.2%) Confirm Administered Dose 20 ml .ROUTE .STK-MED ONE Stop: 12/29/20 14:19 Sterile Water (Sterile Water For Irrigation) 1,000 ml IRR ASDIRECTED PRN PRN Reason: delivery - Interaction Disposition, : to Nursery Infant Feeding: Breastfed ; Nursed Well Support Person: Mother - Recovery Exam Fundal Tone: Firm Fundal Level: 1 Fingerbreadths Below Umbilicus Fundal Placement: Midline Lochia Amount: Scant Lochia Color: Rubra/Red Perineum Description: Intact, Minimal Bruising/Swelling Episiotomy/Laceration: None Bladder Status: Voiding Urinary Elimination: Voided - Exam General: Alert, Oriented, Cooperative, No Acute Distress HEENT: Pupils Equal, Pupils Reactive Neck: Supple, Trachea Midline Lungs: Normal Respiratory Effort GI/Abdominal Exam: Soft, Non-Tender, No Distention Extremities: Normal Inspection, Normal Range of Motion, Non-Tender, No Pedal Kavon ma Skin: Warm, Dry, Intact Wound/Incisions: Healing Well Neurological: No New Focal Deficit Psy/Mental Status: Alert, Normal Affect, Normal Mood - Problem List Review Problem List Initiated/Reviewed/Updated: Yes - My Orders Last 24 Hours: My Active Orders 12/31/20 14:45 Ibuprofen [Motrin] 800 mg PO Q8H PRN 01/01/21 08:49 Ready for Discharge [RC] PER UNIT ROUTINE - Assessment Assessment:: 25yo POD2 s/p primary LTCS, stable and recovering well. - Plan Plan:: - bleeding light, Hgb 10.4, no s/s of anemia - ambulating and tolerating PO - baby well - GDMA2, BS has been wnl, repeat 75g GTT - preeclampsia: BP continue to be normotensive, no symptoms, BP check in 2 weeks Stable for discharge home, reviewed care instructions
== END 2021-01-01 11:55 | disposition home or self-care (01) | DRG 788 ==
LOC: MW.OBCHECK 20:11 → MW.OB 20:12 → OBSVTOIN 12-30 07:27 → MW.OB 12-30 15:45
PROVIDERS: ADMIT Obstetrics & Gynecology; ATTEND Obstetrics & Gynecology
PROC: 10D00Z1 Extraction of Products of Conception, Low, Open Approach (ICD-10-PCS; principal; 2020-12-30)
PROC: 3E0P7VZ Introduction of Hormone into Female Reproductive, Via Natural or Artificial Opening (ICD-10-PCS; 2020-12-30)
PROC: 0U7C7ZZ Dilation of Cervix, Via Natural or Artificial Opening (ICD-10-PCS; 2020-12-30)
PROC: 3E0R3BZ Introduction of Anesthetic Agent into Spinal Canal, Percutaneous Approach (ICD-10-PCS; 2020-12-30)
PROC: 00HU33Z Insertion of Infusion Device into Spinal Canal, Percutaneous Approach (ICD-10-PCS; 2020-12-30)
DX: O24.424 Gestational diabetes mellitus in childbirth, insulin controlled (principal); O76 Abnormality in fetal heart rate and rhythm complicating labor and delivery; O14.04 Mild to moderate pre-eclampsia, complicating childbirth; O36.5930 Maternal care for other known or suspected poor fetal growth, third trimester, not applicable or unspecified; Z3A.38 38 weeks gestation of pregnancy; Z37.0 Single live birth
CPT/HCPCS: 36415; 51702; 59025; 80053; 82570; 82962; 84156; 85025; 85027; 86592; 86850; 86900; 86901; A9270-GY; J0595; J0690; J1815-GY; J1885; J2250; J2270; J2370; J2405; J2590; J2795; J3010; J7042; J7120